=== PATIENT | male | born 1970 | race Caucasian/White ===

== ENCOUNTER 2019-03-13 09:13 | Emergency (ER) | payer OTHER, SELFPAY ==
[2019-03-13] VITALS (7 sets, daily range): BP systolic 105–149; BP diastolic 71–88; PULSE 104–118; RESP 18–32; TEMP 36.9–37.1; O2SAT 88–95; BMI 27.5
--- NOTE | 2019-03-13 | XR_ITS ---
WS: [id number] PROCEDURE: XR chest 2V* [id number] CLINICAL INFORMATION: DYSPNEA COMPARISON: None. FINDINGS: Heart: Normal cardiac silhouette. Lungs: Small moderate left pleural effusion with compressive atelectasis left lung base. Volume loss left lower lobe. Recommend correlation for pneumonia. Air bronchograms left lower lobe. Fullness in t he left hilum. Right lung is well aerated. Bones: Normal visualized bony structures.
--- NOTE | 2019-03-13 09:16 | ED_ITS ---
Entered by Lea Villalba, acting as scribe for Bronson Nichole DO HPI - SOB/Dyspnea General: Chief Complaint: Shortness of Breath/Dyspnea Stated Complaint: SOB Time Seen by Provider: 03/13/19 09:17 Source: patient and family Mode of arrival: ambulatory Limitations: no limitations History of Present Illness: HPI Narrative: 48 yo male presents with shortness of breath. pt states this started today. pt states he was seen at Dr[facility] and sent to the ED for a possible pneumothorax. pt states worsened with deep breaths. pt denies any other symptoms at this time. Patient has had a cough and then suddenly became profoundly short of breath. He is cough has been productive, with a low-grade fever. MD elicited complaint: shortness of breath Onset (ago): hour(s) (today) Timing: constant Severity: moderate Exacerbating factors: exertion Relieving factors: nothing Associated symptoms: Reports no associated symptoms and chest congestion; Deny abdominal pain, chest pain, dizziness, extremity pain, fever(s), hemoptysis, nausea, palpitations, polydipsia, polyuria, syncope or vomiting Treatment prior to arrival: other (pt was seen by Dr. Sullivan they sent him to the ED for a pneumothorax ) Related Data: Home oxygen amount: none Review of Systems Const: Denies: fever, chills, body aches, fatigue, malaise or night sweats Eyes: Denies: change in vision or blurry vision ENMT: Denies: throat pain, oral sores/lesions, dental pain, nasal discharge or nasal congestion Card: Denies: chest pain, palpitations, irregular heart rhythm, edema, syncope or leg pain with exertion Resp: Reports: shortness of breath, productive cough, wheezing and chest congestion; Denies: coughing up blood GI: Denies: abdominal pain, nausea, vomiting, vomiting blood, coffee grounds in vomit, difficulty swallowing, heartburn/indigestion, diarrhea, constipation, cramping, blood in stool or black tarry stool : Denies: flank pain, difficulty urinating, painful urination, urinary frequ ency, urinary urgency, urinary incontinence or blood in urine Musc: Denies: neck pain, back pain, extremity pain, extremity swelling, joint pain or joint swelling Skin/Breast: Denies: rash, itching or redness Neuro: Denies: headache, numbness in extremities, weakness in extremities, changes in sensation, lack of coordination, difficulty walking, frequent falls, dizziness, vertigo or confusion Psych: Denies: anxiety, depression, loss of interest, visual hallucinations, auditory hallucinations, suicidal ideation or homicidal ideation Endo: Denies: excessive urination, excessive thirst, tired all the time or cold intolerance Taqueria/Lymph: Denies: easy bruising, easy bleeding, petechiae, enlarged lymph nodes or tender lymph nodes PFSH ED PFSH: Statuses (acute, chronic, etc) shown below reflect problem list status as previously entered and may not be historically accurate Social History Smoking and tobacco status: never smoked Physical Exam Const: COMMON NORMALS: average body habitus, oriented x3 and alert GENERAL APPEARANCE: cooperative, comfortable, well kempt and well developed NUTRITIONAL APPEARANCE: obese ORIENTATION/CONSCIOUSNESS: Yes awake, Yes oriented to person and Yes oriented to place HENMT: COMMON NORMALS: normocephalic, head/scalp atraumatic, EAC's normal, TM's normal bilaterally, external nose normal, moist oral mucous membranes and oropharynx normal HEAD & SCALP: normocephalic and atraumatic NOSE: external nose normal EXTERNAL AUDITORY CANAL: EAC's normal TYMPANIC MEMBRANE: TM's normal bilaterally MOUTH: oral and palatal mucosa normal, lip normal and tongue normal THROAT: posterior oropharynx normal and tonsils normal Eye: COMMON NORMALS: PERRL, EOMs intact bilaterally, conjunctivae normal and no scleral icterus CONJUNCTIVA: Yes conjunctivae normal PUPIL: Yes PERRL Neck/C-Spine: COMMON NORMALS: full ROM, no lymphadenopathy, supple, no meningeal signs and thyroid normal THYROID: thyroid normal and asymmetrical Lymph: LYMPHATIC: no lymphadenopathy noted Resp: EFFORT & INSPECTION: Yes tachypneic AUSCULTATION: rales on the left and diminished lung sounds (Left lower lung field) Cardio: COMMON NORMALS: regular rate and regular rhythm RATE: regular rate RHYTHM: regular rhythm HEART SOUNDS: no murmurs GI: COMMON NORMALS: normal to inspection, nondistended, normoactive bowel sounds, soft to palpation and no hepatosplenomegaly PALPATION: Yes soft and Yes no hepatosplenomegaly : COMMON NORMALS: Yes no CVA tenderness BLADDER/KIDNEY EXAM: Yes no CVA tenderness Back/Pelvis: COMMON NORMALS: no CVA tenderness LUMBAR SPINE/LOWER BACK: Yes normal to inspection Extremity: COMMON NORMALS: no clubbing, cyanosis or edema, no calf tenderness and no pedal edema Neuro: COMMON NORMALS: oriented x3 SENSORIUM/ORIENTATION: Yes alert, Yes oriented to person and Yes oriented to place MENINGEAL SIGNS: Yes no meningeal signs Psych: APPEARANCE: Yes well kempt Skin: COMMON NORMALS: no rashes or lesions noted and skin turgor normal GENERAL SKIN EXAM: no rashes or lesions noted and turgor normal Course ED course: Initially was concerned there may be a pneumothorax. However it was not convincing on chest x-ray. Discussed Dr. Hdz we went ahead and did a CT that shows what appears to be mucus plugging with pneumonia there is no pneumothorax. We had planned admit the patient here however there is no available rooms and may not likely be any for at least 6 or more hours and even then it is uncertain at that time if there will be a room available. Discussed with the patient we will transfer him to [facility] in [place] due to lack of availability of beds at our facility. Vital Signs: Vital signs: Vital Signs Temperature 98.8 F 03/13/19 15:13 Pulse Rate 115 H 03/13/19 15:13 Respiratory Rate 20 H 03/13/19 15:13 Blood Pressure 137/82 03/13/19 15:13 Pulse Oximetry 95 03/13/19 15:13 MDM - SOB/Dyspnea Lab Data: Labs: Lab Results 03/13/19 03/13/19 03/13/19 Range/Units 09:23 09:23 09:31 WBC 5.9 (4.0-10.0) 10^3/ uL RBC 4.94 (4.1-5.3) 10^6/u L Hgb 14.5 (11.7-16.6) g/dL Hct 42.2 (42.0-52.0) % MCV 85.4 (80-94) fL MCH 29.4 (28.0-34.0) pg MCHC 34.4 (30.0-36.0) g/dL RDW 12.5 (12.1-15.1) % Plt Count 262 (130-400) 10^3/c mm MPV 11.7 H (7.4-10.4) fL Neut % (Auto) 93.7 % Lymph % (Auto) 2.2 % [place] % (Auto) 1.5 % Eos % (Auto) 0.0 % Baso % (Auto) 0.7 % Neut # (Auto) 5.5 (1.8-7.7) 10^3/u L Lymph # (Auto) 0.1 L (0.8-4.8) 10^3/u L [place] # (Auto) 0.1 L (0.2-0.9) 10^3/u L Eos # (Auto) 0.0 (0.0-0.8) 10^3/u L Baso # (Auto) 0.0 (0.0-0.1) 10^3/u L Nucleated RBC % (a uto) 0 % Total Counted 100 (0-100) Segmented Neutroph ils 39 % Band Neutrophils 55.0 % Lymphocytes (Manua l) 3 % Monocytes (Manual) 3.0 % Absolute Monocytes 0.2 (0.1-0.6) 10^3/c mm Nucleated RBCs # 0.0 /100WBC Platelet Estimate Normal (Normal) PT 16.30 H (10.5-13.3) SECO NDS INR 1.27 H (0.8-1.2) APTT 35.1 (23.9-36.7) SECO NDS Specimen Type Sample Site ABG pH (7.35-7.45) ABG pCO2 (35-45) mmHg ABG pO2 (80.0-100.0) mmH g ABG HCO3 (22-26) mmol/L ABG O2 Saturation ABG Base Excess (-2.0-2.0) mmol/ L Jason Test A-a O2 Gradient (5-10) mmHg Hematocrit (42-52) % Hgb O2 Saturation (95-100) % Carboxyhemoglobin (0.4-20.1) %THgb Methemoglobin (0.4-1.5) % Total Hemoglobin (14-18) g/dL Ionized Calcium (1.1-1.4) mmol/L O2 Delivery Device O2 Liters/Min % Logistics Solution Manager ID Sodium (136-145) mmol/L Potassium (3.5-5.1) mmol/L Chloride (98-107) mmol/L Carbon Dioxide (22-29) mmol/L Anion Gap (5-19) BUN (6-20) mg/dL Creatinine (0.7-1.2) mg/dL GFR Calculation (90-130) mL/min Glucose (65-115) mg/dL Calcium (8.5-10.5) mg/dL Total Bilirubin (0.15-1.2) mg/dL AST (0-40) U/L ALT (0-41) U/L Alkaline Phosphata se (40-130) IU/L Creatine Kinase (39-308) U/L Total Protein (6.6-8.7) g/dL Albumin (3.5-5.2) g/dL Globulin (1.3-4.6) g/dL Urine Color (Yellow) Urine Appearance (CLEAR) Urine pH (5-7) Ur Specific Gravit y (1.005-1.030) Urine Protein (Negative) Urine Glucose (UA) (Normal) Urine Ketones (Negative) Urine Occult Blood (Negative) Urine Nitrate (Negative) Urine Bilirubin (NEGATIVE) Urine Urobilinogen (Negative) mg/dL Ur Leukocyte Elvia ase (Negative) Urine RBC (0-2) /hpf Urine WBC (0-5) /hpf Ur Squamous Epith Cells (0-5) Urine Bacteria (NONE) Coarse Granular Ca sts /lpf Influenza Type A A g Negative (Negative) POC Influenza B Ag Negative (Negative) 03/13/19 03/13/19 03/13/19 Range/Units 09:45 09:45 10:49 WBC (4.0-10.0) 10^3/ uL RBC (4.1-5.3) 10^6/u L Hgb (11.7-16.6) g/dL Hct (42.0-52.0) % MCV (80-94) fL MCH (28.0-34.0) pg MCHC (30.0-36.0) g/dL RDW (12.1-15.1) % Plt Count (130-400) 10^3/c mm MPV (7.4-10.4) fL Neut % (Auto) % Lymph % (Auto) % [place] % (Auto) % Eos % (Auto) % Baso % (Auto) % Neut # (Auto) (1.8-7.7) 10^3/u L Lymph # (Auto) (0.8-4.8) 10^3/u L [place] # (Auto) (0.2-0.9) 10^3/u L Eos # (Auto) (0.0-0.8) 10^3/u L Baso # (Auto) (0.0-0.1) 10^3/u L Nucleated RBC % (a uto) % Total Counted (0-100) Segmented Neutroph ils % Band Neutrophils % Lymphocytes (Manua l) % Monocytes (Manual) % Absolute Monocytes (0.1-0.6) 10^3/c mm Nucleated RBCs # /100WBC Platelet Estimate (Normal) PT (10.5-13.3) SECO NDS INR (0.8-1.2) APTT (23.9-36.7) SECO NDS Specimen Type Arterial Sample Site Radial, left ABG pH 7.38 (7.35-7.45) ABG pCO2 38.7 (35-45) mmHg ABG pO2 96.2 (80.0-100.0) mmH g ABG HCO3 22.9 (22-26) mmol/L ABG O2 Saturation 97.6 ABG Base Excess -2.0 (-2.0-2.0) mmol/ L Jason Test Pos A-a O2 Gradient 3.5 L (5-10) mmHg Hematocrit 40.0 L (42-52) % Hgb O2 Saturation 96.7 (95-100) % Carboxyhemoglobin 0.2 L (0.4-20.1) %THgb Methemoglobin 0.7 (0.4-1.5) % Total Hemoglobin 13.0 L (14-18) g/dL Ionized Calcium 1.0 L (1.1-1.4) mmol/L O2 Delivery Device Nrb O2 Liters/Min 10.0 % Logistics Solution Manager ID [email or web address] Sodium 134 L 134.0 (136-145) mmol/L Potassium 3.2 L 3.1 L (3.5-5.1) mmol/L Chloride 94 L (98-107) mmol/L Carbon Dioxide 23 (22-29) mmol/L Anion Gap 20.2 H (5-19) BUN 53 H (6-20) mg/dL Creatinine 4.2 H (0.7-1.2) mg/dL GFR Calculation 15.1 L (90-130) mL/min Glucose 88 78.0 (65-115) mg/dL Calcium 8.4 L (8.5-10.5) mg/dL Total Bilirubin 0.6 (0.15-1.2) mg/dL AST 95 H (0-40) U/L ALT 56 H (0-41) U/L Alkaline Phosphata se 62 (40-130) IU/L Creatine Kinase 70 (39-308) U/L Total Protein 6.2 L (6.6-8.7) g/dL Albumin 2.6 L (3.5-5.2) g/dL Globulin 3.6 (1.3-4.6) g/dL Urine Color (Yellow) Urine Appearance (CLEAR) Urine pH (5-7) Ur Specific Gravit y (1.005-1.030) Urine Protein (Negative) Urine Glucose (UA) (Normal) Urine Ketones (Negative) Urine Occult Blood (Negative) Urine Nitrate (Negative) Urine Bilirubin (NEGATIVE) Urine Urobilinogen (Negative) mg/dL Ur Leukocyte Elvia ase (Negative) Urine RBC (0-2) /hpf Urine WBC (0-5) /hpf Ur Squamous Epith Cells (0-5) Urine Bacteria (NONE) Coarse Granular Ca sts /lpf Influenza Type A A g (Negative) POC Influenza B Ag (Negative) 03/13/19 Range/Units 11:23 WBC (4.0-10.0) 10^3/ uL RBC (4.1-5.3) 10^6/u L Hgb (11.7-16.6) g/dL Hct (42.0-52.0) % MCV (80-94) fL MCH (28.0-34.0) pg MCHC (30.0-36.0) g/dL RDW (12.1-15.1) % Plt Count (130-400) 10^3/c mm MPV (7.4-10.4) fL Neut % (Auto) % Lymph % (Auto) % [place] % (Auto) % Eos % (Auto) % Baso % (Auto) % Neut # (Auto) (1.8-7.7) 10^3/u L Lymph # (Auto) (0.8-4.8) 10^3/u L [place] # (Auto) (0.2-0.9) 10^3/u L Eos # (Auto) (0.0-0.8) 10^3/u L Baso # (Auto) (0.0-0.1) 10^3/u L Nucleated RBC % (a uto) % Total Counted (0-100) Segmented Neutroph ils % Band Neutrophils % Lymphocytes (Manua l) % Monocytes (Manual) % Absolute Monocytes (0.1-0.6) 10^3/c mm Nucleated RBCs # /100WBC Platelet Estimate (Normal) PT (10.5-13.3) SECO NDS INR (0.8-1.2) APTT (23.9-36.7) SECO NDS Specimen Type Sample Site ABG pH (7.35-7.45) ABG pCO2 (35-45) mmHg ABG pO2 (80.0-100.0) mmH g ABG HCO3 (22-26) mmol/L ABG O2 Saturation ABG Base Excess (-2.0-2.0) mmol/ L Jason Test A-a O2 Gradient (5-10) mmHg Hematocrit (42-52) % Hgb O2 Saturation (95-100) % Carboxyhemoglobin (0.4-20.1) %THgb Methemoglobin (0.4-1.5) % Total Hemoglobin (14-18) g/dL Ionized Calcium (1.1-1.4) mmol/L O2 Delivery Device O2 Liters/Min % Logistics Solution Manager ID Sodium (136-145) mmol/L Potassium (3.5-5.1) mmol/L Chloride (98-107) mmol/L Carbon Dioxide (22-29) mmol/L Anion Gap (5-19) BUN (6-20) mg/dL Creatinine (0.7-1.2) mg/dL GFR Calculation (90-130) mL/min Glucose (65-115) mg/dL Calcium (8.5-10.5) mg/dL Total Bilirubin (0.15-1.2) mg/dL AST (0-40) U/L ALT (0-41) U/L Alkaline Phosphata se (40-130) IU/L Creatine Kinase (39-308) U/L Total Protein (6.6-8.7) g/dL Albumin (3.5-5.2) g/dL Globulin (1.3-4.6) g/dL Urine Color Yellow (Yellow) Urine Appearance Sl hazy (CLEAR) Urine pH 5.0 (5-7) Ur Specific Gravit y 1.010 (1.005-1.030) Urine Protein 1+ H (Negative) Urine Glucose (UA) Norm (Normal) Urine Ketones Negative (Negative) Urine Occult Blood 2+ H (Negative) Urine Nitrate Negative (Negative) Urine Bilirubin Neg (NEGATIVE) Urine Urobilinogen Norm (Negative) mg/dL Ur Leukocyte Elvia ase Negative (Negative) Urine RBC 5-10 H (0-2) /hpf Urine WBC 15-25 H (0-5) /hpf Ur Squamous Epith Cells 15-25 H (0-5) Urine Bacteria 2+ H (NONE) Coarse Granular Ca sts 0-4 H /lpf Influenza Type A A g (Negative) POC Influenza B Ag (Negative) Imaging Data^: CXR: Radiologist's impression: [address] [address] XRay Report Signed Patient: Luis Alberto Pastrana #: [id number] : 1970Acct#:[id number] Age/Sex: 48 / MADM Date: 03/13/19 Loc: BANNERoom/Bed: Attending Dr: Ordering Provider/Ordering MD: Bronson Nichole DO Date of Service: 03/13/19 Procedure(s): XR chest 1V portable [id number] Accession Number(s): [id number] Report Number: [id number] WS: [id number] PORTABLE CHEST HISTORY: pneumothorax COMPARISON: Study earlier the same day from [facility]. Increasing consolidation and density over the LEFT thorax. Small may be loculated pleural effusion at the LEFT base. Increased fullness at the LEFT hilum. On the lateral projection obtained at the clinic there is a wedge-shaped area of consolidation suggesting there may be LEFT lower lobe collapse. Abrupt cut off of the proximal LEFT lower lobe bronchus. RIGHT lung is clear. No pneumothorax is appreciated. Cardiac size: Normal. Mediastinum/Aorta: Mild widening and thickening of the mediastinum at the LEFT hilum. No osseous abnormality seen. Notified Bronson Nichole DO at 03/13/2019 10:03 AM. XR/XR chest 1V portable [id number] IMPRESSION: 1. Increasing consolidation throughout the LEFT thorax. Suspect LEFT lower lobe atelectasis and small effusion. Abrupt cut off of the LEFT lower lobe bronchus suspected. 2. Fullness at the LEFT hilum. Neoplasm and pneumonia and mucous plugging within the differential. 3. Recommend follow-up chest CT with IV contrast. Dictated By:Kasey Vargas DO Signed By:Kasey Vargas DOSigned Date/Time:03/13/[address] Chest: Radiologist's impression: [address] [place] [address] CT Scan Report Signed Patient: Luis Alberto Pastrana #: [id number] : 1970Acct#:[id number] Age/Sex: 48 / MADM Date: 03/13/19 Loc: RADOUTREADRoom/Bed: Attending Dr: Satish Sullivan MD Ordering Provider/Ordering MD: Bronson Nichole DO Date of Service: 03/13/19 Procedure(s): CT chest w con* [id number] Accession Number(s): [id number] Report Number: [id number] WS: [id number] CT CHEST WITH INTRAVENOUS CONTRAST HISTORY: dyspnea/pneumothorax L TECHNIQUE: Contiguous 5 mm axial imaging performed on the thorax. Coronal and sagittal reformats are submitted. All CT scans at [facility] use at least one of these dose optimization techniques: automated exposure control; mA and/or kV adjustment per patient size (includes targeted exams where dose is matched to clinical indication); or iterative reconstruction. CONTRAST: Omnipaque 300; 95 mL IV. DLP: 941.65 mGy.cm COMPARISON: Chest radiograph 03/13/2019. Lungs and central airway: Very dense consolidation throughout the entire LEFT lower lobe. Centrally air bronchograms and traversing vessels are noted within the consolidation. There is a small amount of volume loss. There is a very small layering pleural effusion towards the apex. No pulmonary mass or nodules are identified. There is a very small layering RIGHT pleural effusion. Heart and pericardium: Cardiac size is normal. There is a small pericardial effusion measuring 8 mm in diameter. Mediastinum and lulu: Small lymph nodes in the subcarina and posterior to the LEFT main pulmonary artery measuring up to 10 mm. Vessels: Normal size thoracic aorta. Moderate calcification in the main pulmonary arteries. Chest wall and lower neck: No soft tissue masses. Upper abdomen: Only a small portion of the kidneys are included in this examination. There is perinephric stranding around the upper poles of each kidney. The visualized liver and gallbladder are negative. Osseous structures: Mild anterior wedging of T3. Notified Bronson Nichole DO at 03/13/2019 10:[address]/CT chest w con* [id number] IMPRESSION: 1. Dense consolidation LEFT lower lobe consistent with lobar pneumonia. 2. Very small bilateral pleural effusions. No pneumothorax. 3. Small pericardial effusion. 4. Small indeterminate lymph nodes in the subcarina and LEFT hilar region. Dictated By:Kasey Vargas DO Signed By:Kasey Vargas DOSigned Date/Time:03/13/19 1029 Other Xray: Radiologist's impression: [address] [address] XRay Report Signed Patient: Luis Alberto Pastrana #: [id number] : 1970Acct#:[id number] Age/Sex: 48 / MADM Date: 03/13/19 Loc: RADOUTREADRoom/Bed: Attending Dr: Satish Sullivan MD Ordering Provider/Ordering MD: Satish Sullivan MD Date of Service: 03/13/19 Procedure(s): XR chest 2V* [id number] Accession Number(s): [id number] Report Number: [id number] WS: [id number] PROCEDURE: XR chest 2V* 73184 CLINICAL INFORMATION: DYSPNEA COMPARISON: None. FINDINGS: Heart: Normal cardiac silhouette. Lungs: Small moderate left pleural effusion with compressive atelectasis left lung base. Volume loss left lower lobe. Recommend correlation for pneumonia. Air bronchograms left lower lobe. Fullness in the left hilum. Right lung is well aerated. Bones: Normal visualized bony structures. XR/XR chest 2V* 06887 IMPRESSION: Small to moderate left pleural effusion with suggestion of consolidative atelectasis left lung base. Volume loss left lower lobe. Recommend Correlation for pneumonia and further evaluation with chest CT. Dictated By:Nate Huggins MD Signed By:Nate Huggins MDSigned Date/Time:03/13/19 1024 Discharge Plan Discharge Patient Disposition: Transfer to ED Clinical Impression: Community acquired pneumonia, Mucus plugging of bronchi Condition: Stable Prescriptions: No Action sertraline 100 mg tablet 150 mg PO DAILY RF: 0 lisinopril 40 mg tablet 40 mg PO DAILY RF: 0 rosuvastatin 40 mg tablet 40 mg PO DAILY RF: 0 Metamucil 3.4 gram/5.4 gram Powder 1 tbsp PO DAILY PRN (Reason: UNKNOWN) RF: 0 [employer] Collagen Powder 12 g PO DAILY PRN (Reason: UNKNOWN) RF: 0 Discharge Date/Time: 03/13/19 15:14 Coding Level of Care Code ED Musculoskeletal Physician for Chg Fwd Exam Problem Focused The documentation recorded by the Deejay hendricks Bridget Annette, accurately reflects the service I personally performed and the decisions made by Dayanara robb Curtis L, DO Mar 13, 2019 09:13
--- NOTE | 2019-03-13 09:19 | XR_ITS ---
WS: [id number] PORTABLE CHEST HISTORY: pneumothorax COMPARISON: Study earlier the same day from [facility]. Increasing consolidation and density over the LEFT thorax. Small may be loculated pleural effusion at the LEFT base. Increased fullness at the LEFT hilum. On the lateral projection obtained at the clini c there is a wedge-shaped area of consolidation suggesting there may be LEFT lower lobe collapse. Abr upt cut off of the proximal LEFT lower lobe bronchus. RIGHT lung is clear. No pneumothorax is appreci ated. Cardiac size: Normal. Mediastinum/Aorta: Mild widening and thickening of the mediastinum at the LEFT hilum. No osseous abnormality seen. Notified Bronson Nichole DO at 03/13/2019 10:03 AM. XR/XR chest 1V portable [id number] IMPRESSION: 1. Increasing consolidation throughout the LEFT thorax. Suspect LEFT lower lob e atelectasis and small effusion. Abrupt cut off of the LEFT lower lobe bronchu s suspected. 2. Fullness at the LEFT hilum. Neoplasm and pneumonia and mucous plugging with in the differential. 3. Recommend follow-up chest CT with IV contrast.
--- NOTE | 2019-03-13 09:19 | ECG_ITS ---
Measurements Intervals [place] Rate: 101 P: 61 NE: 148 QRS: 63 QRSD: 109 T: 59 QT: 336 QTc: 437 SINUS TACHYCARDIA POSSIBLE LEFT ATRIAL ENLARGEMENT [-0.1mV P WAVE IN V1/V2] ABNORMAL RHYTHM ECG No previous ECG available for comparison Electronically Signed On 03-13-2019 17:27:36 MUTUAL FUND ACCOUNTANT by Loco Portillo M.D. [email or web address]
[2019-03-13 09:31] LABS: Basophils % 0.7 %; Hematocrit 42.2 % (42.0-52.0); Hemoglobin 14.5 g/dL (11.7-16.6); Lymphocytes # 0.1 10^3/uL (0.8-4.8); Lymphocytes % 2.2 %; Mean Corpuscular HGB Conc 34.4 g/dL (30.0-36.0); Mean Corpuscular Hemoglobin 29.4 pg (28.0-34.0); Mean Corpuscular Volume 85.4 fL (80-94); Mean Platelet Volume 11.7 fL (7.4-10.4); Monocytes # 0.1 10^3/uL (0.2-0.9); Monocytes % 1.5 %; Neutrophils # 5.5 10^3/uL (1.8-7.7); Neutrophils % 93.7 %; Nucleated Red Blood Cells % 0 %; Platelet Count 262 10^3/cmm (130-400); Red Blood Count 4.94 10^6/uL (4.1-5.3); Red Cell Distribution Width 12.5 % (12.1-15.1); White Blood Count 5.9 10^3/uL (4.0-10.0)
[2019-03-13] MEDS: sodium chloride 0.9% 1,000 ML 999 ML IV ×2 (09:32→11:05)
[2019-03-13 09:39] LABS: INR 1.27 (0.8-1.2); Partial Thromboplastin Time 35.1 SECONDS (23.9-36.7)
[2019-03-13 09:50] LABS: Slide Review Slide Review Perform
[2019-03-13 09:52] LABS: Absolute Segmented Neutrophil 2.3 10/cmm (1.6-7.1); Band Neutrophils Absolute 3.2 10^3/cmm (0.0-1.2); Lymphocytes 3 %; Monocytes Absolute 0.2 10^3/cmm (0.1-0.6); Segmented Neutrophils 39 %; Total Cells Counted 100 (0-100)
[2019-03-13 09:53] LABS: Platelet Estimate Normal (Normal)
--- NOTE | 2019-03-13 09:58 | CT_ITS ---
WS: [id number] CT CHEST WITH INTRAVENOUS CONTRAST HISTORY: dyspnea/pneumothorax L TECHNIQUE: Contiguous 5 mm axial imaging performed on the thorax. Coronal and sagittal reformats are submitted. All CT scans at [facility] use at least one of these dose optimization techniq ues: automated exposure control; mA and/or kV adjustment per patient size (includes targeted exams wh ere dose is matched to clinical indication); or iterative reconstruction. CONTRAST: Omnipaque 300; 95 mL IV. DLP: 941.65 mGy.cm COMPARISON: Chest radiograph 03/13/2019. Lungs and central airway: Very dense consolidation throughout the entire LEFT lower lobe. Centrally a ir bronchograms and traversing vessels are noted within the consolidation. There is a small amount of volume loss. There is a very small layering pleural effusion towards the apex. No pulmonary mass or nodules are identified. There is a very small layering RIGHT pleural effusion. Heart and pericardium: Cardiac size is normal. There is a small pericardial effusion measuring 8 mm i n diameter. Mediastinum and lulu: Small lymph nodes in the subcarina and posterior to the LEFT main pulmonary art tayla measuring up to 10 mm. Vessels: Normal size thoracic aorta. Moderate calcification in the main pulmonary arteries. Chest wall and lower neck: No soft tissue masses. Upper abdomen: Only a small portion of the kidneys are included in this examination. There is perinep hric stranding around the upper poles of each kidney. The visualized liver and gallbladder are negati ve. Osseous structures: Mild anterior wedging of T3. Notified Bronson Nichole DO at 03/13/2019 10:[address]/CT chest w con* [id number] IMPRESSION: 1. Dense consolidation LEFT lower lobe consistent with lobar pneumonia. 2. Very small bilateral pleural effusions. No pneumothorax. 3. Small pericardial effusion. 4. Small indeterminate lymph nodes in the subcarina and LEFT hilar region.
[2019-03-13 10:04] LABS: Influenza A by IFA Negative (Negative); Influenza B by IFA Negative (Negative)
[2019-03-13 10:09] LABS: Alanine Aminotransferase 56 U/L (0-41); Albumin Level 2.6 g/dL (3.5-5.2); Alkaline Phosphatase 62 IU/L (40-130); Anion Gap 20.2 (5-19); Aspartate Amino Transferase 95 U/L (0-40); Blood Urea Nitrogen 53 mg/dL (6-20); Calcium 8.4 mg/dL (8.5-10.5); Carbon Dioxide 23 mmol/L (22-29); Chloride 94 mmol/L (98-107); Globulin 3.6 g/dL (1.3-4.6); Glomerular Filtration Rate 15.1 mL/min (90-130); Glucose 88 mg/dL (65-115); Potassium 3.2 mmol/L (3.5-5.1); Sodium 134 mmol/L (136-145); Total Bilirubin 0.6 mg/dL (0.15-1.2); Total Protein 6.2 g/dL (6.6-8.7)
[2019-03-13] MEDS: iohexol 300 mg/mL 100 mL Btl IV (10:10)
[2019-03-13 11:01] LABS: ABG PCO2 38.7 mmHg (35-45); ABG PH Result 7.38 (7.35-7.45); Alveolar-Arterial Oxygen Gradi 3.5 mmHg (5-10); Blood Gas Allen Test Pos; Blood Gas Operator Identificat amh; Blood Gas Sample Site Radial, left; Blood Gas Sample Type Arterial; Carboxyhemoglobin 0.2 %THgb (0.4-20.1); HCO3 ABG 22.9 mmol/L (22-26); HGB O2 Sat 96.7 % (95-100); Methemoglobin 0.7 % (0.4-1.5); Oxygen Device NRB; Oxygen Saturation ABG 97.6; PO2 ABG 96.2 mmHg (80.0-100.0); Potassium Level - ABG 3.1 mmol/L (3.5-5.0)
[2019-03-13] MEDS: cefTRIAXone 1,000 MG in sodium chloride 0.9% (plus) 50 ML 100 MG IV (11:12)
[2019-03-13 11:22] LABS: Creatine Phosphokinase 70 U/L (39-308)
[2019-03-13] MEDS: potassium chloride premix 40 MEQ/100 ML PREMIX 25 MEQ IV (11:28)
[2019-03-13 11:40] LABS: Glucose Urine UA Norm (Normal); Ketones Urine Negative (Negative); Protein Urine 1+ (Negative); Urine Appearance SL Hazy (CLEAR); Urine Color Yellow (Yellow)
[2019-03-13 11:41] LABS: Add Urine Microscopic? YES; Bilirubin Urine Neg (NEGATIVE); Blood Urine 2+ (Negative); Leukocyte Esterase Urine Negative (Negative); Nitrate Urine Negative (Negative); Urobilinogen Urine Norm (Negative)
[2019-03-13] MEDS: azithromycin 500 MG in sodium chloride 0.9% 250 ML 250 MG IV (11:50)
[2019-03-13 11:58] LABS: Bacteria Urine 2+; Squamous Epithelial Cell Urine 15-25 (0-5); WBC Urine 15-25 /hpf (0-5)
[2019-03-13 11:59] LABS: Add Urine Culture? No; Coarse Granular Casts Urine 0-4 /lpf
[2019-03-13] MEDS: ipratropium-albuterol 3 mL Neb INHALATION (13:51)
== END 2019-03-13 15:14 ==
LOC: ER 10:06 → RADOUTREAD 10:18 → ER 10:50
PROVIDERS: Emergency Provider Family Medicine
DX: J18.9 Pneumonia, unspecified organism (principal); E66.9 Obesity, unspecified; Z68.27 Body mass index [BMI] 27.0-27.9, adult
CPT/HCPCS: 36415; 36600; 71045; 71260; 80051; 80053; 81001; 82550; 82810; 83986; 85007; 85025; 85610; 85730; 87070; 87077; 87186; 87205; 87804; 93005; 94640; 96365; 96366; 96367; 96368; 99283; 99285; A9270; J0456; J0696; J3480; J7030; J7050; Q9967

== ENCOUNTER 2019-03-13 10:51 | Outpatient (CLI) | payer OTHER, SELFPAY ==
--- NOTE | 2019-03-13 | XR_ITS ---
WS: [id number] PROCEDURE: XR chest 2V* [id number] CLINICAL INFORMATION: DYSPNEA COMPARISON: None. FINDINGS: Heart: Normal cardiac silhouette. Lungs: Small moderate left pleural effusion with compressive atelectasis left lung base. Volume loss left lower lobe. Recommend correlation for pneumonia. Air bronchograms left lower lobe. Fullness in the left hilum. Right lung is well aerated. Bones: Normal visualized bony structures. Dictated By: Nate Huggins MD Signed By: Signed Date/Time: DD/ 1020 MTDD
== END 2019-03-13 10:52 | disposition home or self-care (01) ==
LOC: RADOUTREAD 10:55
PROVIDERS: Visit Provider Family Medicine
DX: Z76.89 Persons encountering health services in other specified circumstances (principal)